=== PATIENT | female | born 1955 | race Caucasian/White ===

== ENCOUNTER → 2021-03-31 | Outpatient (CLI) | payer BC, MEDICARE | LOC: M WHC 15:37 | PROVIDERS: ATTEND Physician Assistant | DX: Z12.31 Encounter for screening mammogram for malignant neoplasm of breast (principal); Z78.0 Asymptomatic menopausal state ==

== ENCOUNTER → 2021-06-15 | Outpatient (CLI) | payer MEDICARE ==
[~2021-06-15] MED LIST: CYCL-707 PO; DOCU-153 PO; MELA10CA2 PO; PREG75CA2 PO; ROSU20TA5 PO
== END ==
LOC: M LABSMTC 09:00
PROVIDERS: ATTEND Anesthesiology
DX: Z01.812 Encounter for preprocedural laboratory examination (principal); Z20.822 Contact with and (suspected) exposure to COVID-19

== ENCOUNTER → 2021-10-16 | Outpatient (CLI) | payer MEDICARE | LOC: M WHC 13:02 | PROVIDERS: ATTEND Physician Assistant | DX: M85.89 Other specified disorders of bone density and structure, multiple sites (principal); E55.9 Vitamin D deficiency, unspecified ==

== ENCOUNTER → 2022-01-27 | Outpatient (CLI) | payer MEDICARE ==
[2022-01-27 12:43] LABS: BASO # 0.1 10^3/uL (0.0-0.2); BASO % 0.6 % (0.0-1.0); EOS # 0.2 10^3/uL (0.0-0.5); EOS % 2.4 % (0.0-3.0); HEMATOCRIT 41.9 % (36.0-47.0); HEMOGLOBIN 13.7 g/dl (12.0-15.5); LYMPH # 1.9 10^3/uL (1.5-5.0); LYMPH % 21.4 % (24.0-44.0); MEAN CORPUSCULAR HEMOGLOBIN 32.4 pg (27.0-33.0); MEAN CORPUSCULAR HGB CONC 32.7 g/dl (32.0-36.5); MEAN CORPUSCULAR VOLUME 99.1 fl (80.0-96.0); MONO # 0.5 10^3/uL (0.0-0.8); MONO % 5.5 % (2.0-8.0); NEUTROPHILS # 6.2 10^3/uL (1.5-8.5); NEUTROPHILS % 69.9 % (36.0-66.0); PLATELET COUNT, AUTOMATED 237 10^3/uL (150-450); RED BLOOD COUNT 4.23 10^6/uL (4.00-5.40); WHITE BLOOD COUNT 8.8 10^3/uL (4.0-10.0)
[2022-01-27 13:50] LABS: ALBUMIN 3.9 G/DL (3.2-5.2); ALKALINE PHOSPHATASE 93 U/L (46-116); ALT/SGPT 26 U/L (7.0-40); AST/SGOT 26 U/L (<34); BILIRUBIN,TOTAL 0.8 MG/DL (0.3-1.2); BLOOD UREA NITROGEN 10 MG/DL (9-23); CARBON DIOXIDE LEVEL 30 MMOL/L (20-31); CHLORIDE LEVEL 107 MMOL/L (98-107); CHOLESTEROL LEVEL 127 MG/DL (<200); CHOLESTEROL RISK RATIO 2.82 (<5); GLOMERULAR FILTRATION RATE > 60.0 (>45); GLUCOSE, FASTING 86 MG/DL (74-106); HDL CHOLESTEROL 44.9 MG/DL (>40); LDL CHOLESTEROL 66.3 MG/DL (<100); NON-HDL-C 82 MG/DL; POTASSIUM SERUM 4.4 MMOL/L (3.5-5.1); SODIUM LEVEL 142 MMOL/L (136-145); TOTAL 25(OH) VITAMIN D 47.7 NG/ML (20.0-100.0); TOTAL PROTEIN 6.4 G/DL (5.7-8.2); TRIGLYCERIDES LEVEL 79 MG/DL (<150)
== END ==
LOC: M WUC 09:22
PROVIDERS: ATTEND Physician Assistant
DX: E55.9 Vitamin D deficiency, unspecified (principal); M85.80 Other specified disorders of bone density and structure, unspecified site; E78.00 Pure hypercholesterolemia, unspecified

== ENCOUNTER 2022-03-10 17:47 | Emergency (ER) | payer MEDICARE ==
[~2022-03-10] VITALS: Ht 165.1 cm; Wt 73.2 kg
[2022-03-10] MEDS ORDERED: LABETALOL 100MG/20ML VIAL IV STA (18:03)
[2022-03-10] MEDS ORDERED: CHLORTHALIDONE 25 MG TAB PO ONE (18:05)
[2022-03-10] MEDS ORDERED: CHLO125TA PO (18:05)
[2022-03-10 18:28] VITALS: BP 186/77
[2022-03-10 18:44] LABS: BASO # 0.1 10^3/uL (0.0-0.2); BASO % 0.6 % (0.0-1.0); EOS # 0.1 10^3/uL (0.0-0.5); EOS % 1.5 % (0.0-3.0); HEMATOCRIT 40.4 % (36.0-47.0); HEMOGLOBIN 13.5 g/dl (12.0-15.5); LYMPH # 2.2 10^3/uL (1.5-5.0); LYMPH % 25.1 % (24.0-44.0); MEAN CORPUSCULAR HEMOGLOBIN 32.4 pg (27.0-33.0); MEAN CORPUSCULAR HGB CONC 33.4 g/dl (32.0-36.5); MEAN CORPUSCULAR VOLUME 96.9 fl (80.0-96.0); MONO # 0.5 10^3/uL (0.0-0.8); MONO % 5.9 % (2.0-8.0); NEUTROPHILS # 5.9 10^3/uL (1.5-8.5); NEUTROPHILS % 66.6 % (36.0-66.0); PLATELET COUNT, AUTOMATED 177 10^3/uL (150-450); RED BLOOD COUNT 4.17 10^6/uL (4.00-5.40); WHITE BLOOD COUNT 8.8 10^3/uL (4.0-10.0)
[2022-03-10 19:11] LABS: ALBUMIN 3.9 G/DL (3.2-5.2); ALKALINE PHOSPHATASE 88 U/L (46-116); ALT/SGPT 30 U/L (7.0-40); AST/SGOT 32 U/L (<34); BILIRUBIN,TOTAL 0.8 MG/DL (0.3-1.2); BLOOD UREA NITROGEN 13 MG/DL (9-23); CARBON DIOXIDE LEVEL 30 MMOL/L (20-31); CHLORIDE LEVEL 106 MMOL/L (98-107); CREATININE FOR GFR 0.69 MG/DL (0.55-1.30); GLOMERULAR FILTRATION RATE > 60.0 (>45); GLUCOSE, FASTING 90 MG/DL (74-106); POTASSIUM SERUM 4.8 MMOL/L (3.5-5.1); SODIUM LEVEL 141 MMOL/L (136-145); TOTAL PROTEIN 6.5 G/DL (5.7-8.2)
[2022-03-10 21:02] VITALS: BP 173/74
== END 2022-03-10 21:06 | disposition home or self-care (01) ==
LOC: M ED 17:47 → EDBD 17:47 → M ED 21:06
DX: I10 Essential (primary) hypertension (principal); E78.5 Hyperlipidemia, unspecified; M06.9 Rheumatoid arthritis, unspecified; F17.200 Nicotine dependence, unspecified, uncomplicated; Z79.891 Long term (current) use of opiate analgesic; Z79.899 Other long term (current) drug therapy

== ENCOUNTER 2022-04-12 21:07 | Emergency (ER) | payer MEDICARE ==
[~2022-04-12] VITALS: Ht 167.6 cm; Wt 70.9 kg
[~2022-04-12 21:07] MED LIST changes: +CHLO125TA PO
[2022-04-12 21:12] VITALS: BP 175/72
[2022-04-12] MEDS ORDERED: AMLO2.5T3 PO (21:24)
[2022-04-12] MEDS ORDERED: LINZ145C PO (21:24)
== END 2022-04-12 22:32 | disposition left against medical advice (07) ==
LOC: EDBD 21:07 → M ED 21:07 → EDSEX 21:07 → M ED 22:32
DX: Z53.21 Procedure and treatment not carried out due to patient leaving prior to being seen by health care provider (principal)

== ENCOUNTER → 2022-04-21 | Outpatient (CLI) | payer MEDICARE ==
[~2022-04-21] MED LIST changes: +AMLO2.5T3 PO; +LINZ145C PO
== END ==
LOC: M WHC 08:22
PROVIDERS: ATTEND Physician Assistant
DX: Z12.31 Encounter for screening mammogram for malignant neoplasm of breast (principal)

== ENCOUNTER → 2023-01-31 | Outpatient (CLI) | payer MEDICARE ==
[~2023-01-31] MED LIST changes: -PREG75CA2 PO; +PREG75CA3 PO; -ROSU20TA5 PO; +ROSU20TA61 PO
[2023-01-31 10:53] LABS: BASO # 0.1 10^3/uL (0.0-0.2); BASO % 0.9 % (0.0-1.0); EOS # 0.2 10^3/uL (0.0-0.5); EOS % 2.1 % (0.0-3.0); HEMATOCRIT 41.8 % (36.0-47.0); LYMPH # 2.2 10^3/uL (1.5-5.0); LYMPH % 27.5 % (24.0-44.0); MEAN CORPUSCULAR HEMOGLOBIN 32.8 pg (27.0-33.0); MEAN CORPUSCULAR HGB CONC 33.5 g/dl (32.0-36.5); MEAN CORPUSCULAR VOLUME 97.9 fl (80.0-96.0); MONO # 0.6 10^3/uL (0.0-0.8); NEUTROPHILS # 5.1 10^3/uL (1.5-8.5); NEUTROPHILS % 62.4 % (36.0-66.0); PLATELET COUNT, AUTOMATED 268 10^3/uL (150-450); RED BLOOD COUNT 4.27 10^6/uL (4.00-5.40); WHITE BLOOD COUNT 8.1 10^3/uL (4.0-10.0)
[2023-01-31 15:05] LABS: ALKALINE PHOSPHATASE 86 U/L (46-116); ALT/SGPT 25 U/L (7.0-40); AST/SGOT 26 U/L (<34); BLOOD UREA NITROGEN 9 MG/DL (9-23); CALCIUM LEVEL 9.2 MG/DL (8.3-10.6); CARBON DIOXIDE LEVEL 27 MMOL/L (20-31); CHLORIDE LEVEL 106 MMOL/L (98-107); CHOLESTEROL LEVEL 151 MG/DL (<200); CREATININE FOR GFR 0.63 MG/DL (0.55-1.30); FOLATE 18.1 NG/ML (>5.4); GLOMERULAR FILTRATION RATE > 60.0 (>45); GLUCOSE, FASTING 72 MG/DL (74-106); SODIUM LEVEL 139 MMOL/L (136-145); TOTAL 25(OH) VITAMIN D 37.2 NG/ML (20.0-100.0); TOTAL PROTEIN 6.6 G/DL (5.7-8.2); TRIGLYCERIDES LEVEL 71 MG/DL (<150); VITAMIN B12 LEVEL 350 PG/ML (211-911)
[2023-01-31 16:50] LABS: CHOLESTEROL RISK RATIO 2.94 (<5); HDL CHOLESTEROL 51.3 MG/DL (>40); LDL CHOLESTEROL 85.5 MG/DL (<100); NON-HDL-C 99.7 MG/DL
== END ==
LOC: M LAB 09:29
PROVIDERS: ATTEND Physician Assistant
DX: E78.00 Pure hypercholesterolemia, unspecified (principal); E55.9 Vitamin D deficiency, unspecified; M85.80 Other specified disorders of bone density and structure, unspecified site; R03.0 Elevated blood-pressure reading, without diagnosis of hypertension; R71.8 Other abnormality of red blood cells

== ENCOUNTER → 2023-04-13 | Outpatient (CLI) | payer MEDICARE ==
[~2023-04-13] MED LIST changes: -DOCU-153 PO; +STOO100C30 PO
== END ==
LOC: M EKG 14:10
PROVIDERS: ATTEND Physician Assistant
DX: R00.2 Palpitations (principal); I44.1 Atrioventricular block, second degree

== ENCOUNTER → 2023-05-24 | Outpatient (CLI) | payer MEDICARE | LOC: M WHC 07:05 | PROVIDERS: ATTEND Physician Assistant | DX: Z12.31 Encounter for screening mammogram for malignant neoplasm of breast (principal) ==

== ENCOUNTER → 2023-10-28 | Outpatient (CLI) | payer OTHER | LOC: M WHC 12:32 | PROVIDERS: ATTEND Physician Assistant | DX: Z13.220 Encounter for screening for lipoid disorders (principal); M85.851 Other specified disorders of bone density and structure, right thigh; M85.852 Other specified disorders of bone density and structure, left thigh ==

== ENCOUNTER → 2024-01-02 | Outpatient (CLI) | payer OTHER ==
[~2024-01-02] MED LIST changes: -ROSU20TA61 PO; +ROSU20TA86 PO
[2024-01-02 07:51] LABS: HEMATOCRIT 38.2 % (36.0-47.0); HEMOGLOBIN 13.6 g/dl (12.0-15.5); MEAN CORPUSCULAR HEMOGLOBIN 33.1 pg (27.0-33.0); MEAN CORPUSCULAR HGB CONC 35.6 g/dl (32.0-36.5); MEAN CORPUSCULAR VOLUME 92.9 fl (80.0-96.0); PLATELET COUNT, AUTOMATED 277 10^3/uL (150-450); RED BLOOD COUNT 4.11 10^6/uL (4.00-5.40); WHITE BLOOD COUNT 11.3 10^3/uL (4.0-10.0)
[2024-01-02 08:21] LABS: ALBUMIN 3.9 G/DL (3.2-5.2); ALKALINE PHOSPHATASE 118 U/L (35-104); ALT/SGPT 21 U/L (7.0-40); AST/SGOT 15 U/L (<34); BILIRUBIN,TOTAL 1.1 MG/DL (0.3-1.2); BLOOD UREA NITROGEN 9 MG/DL (9-23); CALCIUM LEVEL 9.8 MG/DL (8.3-10.6); CARBON DIOXIDE LEVEL 31 MMOL/L (20-31); CHLORIDE LEVEL 90 MMOL/L (98-107); CHOLESTEROL LEVEL 134 MG/DL (<200); CHOLESTEROL RISK RATIO 2.62 (<5); CREATININE FOR GFR 0.51 MG/DL (0.55-1.30); GLOMERULAR FILTRATION RATE > 60.0 (>39); GLUCOSE, FASTING 78 MG/DL (74-106); HDL CHOLESTEROL 51.1 MG/DL (>40); LDL CHOLESTEROL 70.1 MG/DL (<100); NON-HDL-C 82.9 MG/DL; POTASSIUM SERUM 3.7 MMOL/L (3.5-5.1); SODIUM LEVEL 127 MMOL/L (136-145); TOTAL PROTEIN 7.2 G/DL (5.7-8.2); TRIGLYCERIDES LEVEL 64 MG/DL (<150)
[2024-01-02 08:23] LABS: TOTAL 25(OH) VITAMIN D 40.3 NG/ML (20.0-100.0)
== END ==
LOC: M LAB 07:09
PROVIDERS: ATTEND Physician Assistant
DX: M85.80 Other specified disorders of bone density and structure, unspecified site (principal); I10 Essential (primary) hypertension

== ENCOUNTER → 2024-02-15 | Outpatient (CLI) | payer OTHER ==
[2024-02-15 12:29] LABS: BLOOD UREA NITROGEN 11 MG/DL (9-23); CALCIUM LEVEL 9.1 MG/DL (8.3-10.6); CARBON DIOXIDE LEVEL 31 MMOL/L (20-31); CHLORIDE LEVEL 92 MMOL/L (98-107); CREATININE FOR GFR 0.49 MG/DL (0.55-1.30); GLOMERULAR FILTRATION RATE > 60.0 (>39); GLUCOSE, FASTING 143 MG/DL (74-106); POTASSIUM SERUM 3.2 MMOL/L (3.5-5.1); SODIUM LEVEL 127 MMOL/L (136-145)
== END ==
LOC: M LAB 10:14
PROVIDERS: ATTEND Physician Assistant
DX: E87.1 Hypo-osmolality and hyponatremia (principal)

== ENCOUNTER → 2024-03-16 | Outpatient (CLI) | payer OTHER ==
[2024-03-16 10:13] LABS: BLOOD UREA NITROGEN 11 MG/DL (9-23); CARBON DIOXIDE LEVEL 30 MMOL/L (20-31); CHLORIDE LEVEL 97 MMOL/L (98-107); CHOLESTEROL LEVEL 137 MG/DL (<200); CHOLESTEROL RISK RATIO 2.36 (<5); CREATININE FOR GFR 0.52 MG/DL (0.55-1.30); GLOMERULAR FILTRATION RATE > 60.0 (>39); GLUCOSE, FASTING 85 MG/DL (74-106); HDL CHOLESTEROL 57.9 MG/DL (>40); LDL CHOLESTEROL 67.7 MG/DL (<100); NON-HDL-C 79.1 MG/DL; POTASSIUM SERUM 3.8 MMOL/L (3.5-5.1); SODIUM LEVEL 133 MMOL/L (136-145); TRIGLYCERIDES LEVEL 57 MG/DL (<150)
[2024-03-16 10:15] LABS: THYROID STIMULATING HORMONE 2.299 uIU/ML (0.55-4.78)
== END ==
LOC: M LAB 08:51
PROVIDERS: ATTEND Physician Assistant
DX: E87.1 Hypo-osmolality and hyponatremia (principal); Z79.899 Other long term (current) drug therapy

== ENCOUNTER → 2024-05-07 | Outpatient (CLI) | payer MEDICARE ==
[2024-05-07 09:43] LABS: BLOOD UREA NITROGEN 12 MG/DL (9-23); CALCIUM LEVEL 8.9 MG/DL (8.3-10.6); CARBON DIOXIDE LEVEL 27 MMOL/L (20-31); CHLORIDE LEVEL 104 MMOL/L (98-107); CREATININE FOR GFR 0.56 MG/DL (0.55-1.30); GLOMERULAR FILTRATION RATE > 60.0 (>39); GLUCOSE, FASTING 80 MG/DL (74-106); POTASSIUM SERUM 4.2 MMOL/L (3.5-5.1); SODIUM LEVEL 138 MMOL/L (136-145)
== END ==
LOC: M LAB 08:24
PROVIDERS: ATTEND Physician Assistant
DX: K59.00 Constipation, unspecified (principal)